=== PATIENT | female | born 2005 | race African-American/Black ===

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

== ENCOUNTER 2025-03-05 11:02 | Outpatient (CLI) | payer OTHER, BC, SELFPAY ==
[2025-03-05 14:33] LABS: Chlamydia DNA Amplified* NOT DETECTED (No Detected); GC DNA Amplified* NOT DETECTED (No Detected)
== END 2025-03-05 11:03 | disposition home or self-care (01) ==
LOC: NFLDREF 11:02
PROVIDERS: Visit Provider Registered Nurse
DX: Z11.3 Encounter for screening for infections with a predominantly sexual mode of transmission (principal)
CPT/HCPCS: 87491; 87591